=== PATIENT | male | born 1990 | race African-American/Black ===

== ENCOUNTER 2020-09-16 08:46 | Emergency (ER) | payer OTHER ==
[~2020-09-16] VITALS: Ht 188 cm; Wt 77.1 kg
[2020-09-16] MEDS ORDERED: Tetanus/Diptheria/Pertussis IM ONE ×2 (09:09→09:15)
[2020-09-16] MEDS ORDERED: Bacitracin Oint UD TOPIC ONE (09:13)
--- NOTE | 2020-09-16 09:15 | Emergency Room Report ---
History of Present Illness General Chief Complaint: Finger laceration Source: Patient Present Illness HPI Patient presents emergency department complaining of a laceration to his left ring finger. Patient cut his left ring finger last night. He does not remember his last tetanus shot was. The laceration however appears fairly superficial and bleeding is controlled. No other injuries were noted. Denies any numbness tingling. No other complaints. Patient is moving finger without difficulty. No other modifying factors. No other associated signs and symptoms. No other complaints were noted. Allergies: Coded Allergies: No Known Allergies (Unverified , 09/16/20) Patient History Past Medical History: none Past Surgical History: none Pertinent Family History: none Social History: Denies: smoking, alcohol use, drug use Reviewed Nursing Documentation: PMH: Agreed; PSxH: Agreed Review of Systems All Other Systems: negative except mentioned in HPI Physical Exam Afebrile. Vital signs normal. Sp02 EP Interpretation: reviewed, normal General Appearance: normal inspection, well appearing, no apparent distress, alert Head: atraumatic Eyes: bilateral eye normal inspection ENT: hearing grossly normal, normal voice Neck: supple Respiratory: no respiratory distress, no retraction Cardiovascular #1: no edema Gastrointestinal: soft Musculoskeletal: back normal, normal range of motion, other - Left ring finger laceration superficial Neurologic: alert, responsive, speech normal, normal inspection Psychiatric: normal inspection, judgement/insight normal, mood/affect normal Skin: other - Lacerations left ring finger. Superficial. Medical Decision Making Diagnostic Impression: Primary Impression: Laceration ER Course Patient presents emergency department today complaint of a laceration to the left ring finger. Differential diagnosis include deep tissue injury tendon injury vascular injury. Patient's exam is benign. Laceration is superficial. This does not require repair. Therefore patient was given wound care instructions. The wound was dressed. Patient was advised follow-up as an outpatient. Patient's tetanus was updated. Patient is advised to follow up with primary doctor in 2-3 days and return the emergency room for any worsening symptoms and as needed. Disposition: HOME, SELF-CARE Condition: Stable Patient Instructions: Laceration Care, Adult Raj Mckeon MD Sep 16, 2020 09:15
[2020-09-16 09:19] VITALS: BP 123/72
--- NOTE | 2020-09-16 09:22 | NUR ---
Patient presented to the ER with report of cutting his finger last night while cutting an avocado. He decided to come in today to have the laceration evaluated. No significant medical history, NKA. Per MD, laceration is superficial. Patient instructed to use Bacitracin. Tetanus shot to be given then patient will be cleared for discharge.
== END 2020-09-16 09:21 | disposition home or self-care (01) ==
LOC: EMR 09:15
DX: S61.215A Laceration without foreign body of left ring finger without damage to nail, initial encounter (principal); Z23 Encounter for immunization; X58.XXXA Exposure to other specified factors, initial encounter; Y92.9 Unspecified place or not applicable
CPT/HCPCS: 90471; 90715; Z7502; 99282